=== PATIENT | male | born 1945 | race Caucasian/White ===

== ENCOUNTER 2020-05-25 06:35 | Day surgery (SDC) | payer MEDICARE, BC ==
[~2020-05-25] VITALS: Ht 172.7 cm; Wt 71.2 kg
[~2020-05-25 06:35] MED LIST: ALEN70TA2 PO; ASPI-543 PO; ATO40T PO; CAR125T PO; COLC1CAP PO; LISI2.5T47 PO; TICA90TA PO
[2020-05-25] MEDS ORDERED: LIDOCAINE 2%HCL (LOCAL ANESTH.) INJ 20ML MDV ONE (07:22)
[2020-05-25] MEDS ORDERED: IODIXANOL 320MG/ML 100ML BTL IV ONE ×2 (07:22→08:32)
[2020-05-25] MEDS ORDERED: HEPARIN SODIUM (PORCINE) 5000 UNITS/ML 1ML VIAL ONE (07:39)
[2020-05-25] MEDS ORDERED: VERAPAMIL 2.5MG/ML INJ 2ML VIAL IV ONE (07:39)
[2020-05-25] MEDS ORDERED: fentaNYL CITRATE 100 MCG/2 ML VL ONE (07:39)
[2020-05-25] MEDS ORDERED: NITROGLYCERIN 5MG/ML 10ML VIAL IV ONE (07:39)
[2020-05-25] MEDS ORDERED: ANGIOMAX 250 MG VIAL IV ONE (07:39)
[2020-05-25] MEDS ORDERED: SODIUM CHL 0.9% 50 ML ONE ×2 (07:40→07:42)
[2020-05-25] MEDS ORDERED: MIDAZOLAM HCL 1MG/1ML-2 ML VIAL ONE (07:40)
[2020-05-25] MEDS ORDERED: TICAGRELOR 90 MG TAB ONE (08:48)
[2020-05-25] MEDS ORDERED: ASPirin 325 MG TAB ONE (08:48)
== END 2020-05-25 12:55 | disposition home or self-care (01) ==
LOC: CATH 06:35
PROVIDERS: ATTEND Internal Medicine Cardiovascular Disease
DX: I25.10 Atherosclerotic heart disease of native coronary artery without angina pectoris (principal); I10 Essential (primary) hypertension; E78.5 Hyperlipidemia, unspecified; Z98.890 Other specified postprocedural states; Z20.822 Contact with and (suspected) exposure to COVID-19; Z79.899 Other long term (current) drug therapy
CPT/HCPCS: 93458; 93571; C1726; C1769; C1874; C1887; C1894; C9600; J0583; J1644; J2250; J3010; J3490; J7030; Q9967; U0003; 99152; 99153